=== PATIENT | male | born 1960 | race Two or more races ===

== ENCOUNTER → 2016-10-15 | Outpatient (CLI) | payer MEDICARE, OTHER ==
[2016-10-15 15:11] LABS: ADD UA MICROSCOPIC YES; APPEARANCE,URINE CLEAR (CLEAR); GLUCOSE, URINE (UA) NEGATIVE (NEGATIVE); KETONES,URINE TRACE mg/dL (NEGATIVE); LEUKOCYTE ESTERASE ,URINE TRACE (NEGATIVE); OCCULT BLOOD,URINE NEGATIVE (NEGATIVE); PROTEIN,URINE TRACE (NEGATIVE)
[2016-10-15 15:14] LABS: BASOPHILS % (AUTO) 0.3 % (0.0-2.0); HEMATOCRIT 46.6 % (41-53); HEMOGLOBIN 15.7 g/dL (13.5-17.5); LYMPHOCYTES # (AUTO) 1.5 K/uL (1.0-4.8); LYMPHOCYTES % (AUTO) 16.4 % (22.0-44.0); MEAN CORPUSCULAR HEMOGLOBIN 29.3 pg (26.0-34.0); MEAN CORPUSCULAR HGB CONC 33.8 G/dL (31.0-37.0); MEAN CORPUSCULAR VOLUME 87 fL (80-100); MONOCYTES # (AUTO) 0.7 K/uL (0.1-1.0); MONOCYTES % (AUTO) 7.9 % (2.0-9.0); NEUTROPHILS # (AUTO) 6.5 K/uL (1.8-7.7); NEUTROPHILS % (AUTO) 73.4 % (40.0-70.0); PLATELET COUNT (AUTO) 275 K/uL (150-450); RED BLOOD CELL COUNT(AUTO) 5.37 MIL/uL (4.50-5.90); RED CELL DISTRIBUTION WIDTH 14.2 % (11.5-14.5); WHITE BLOOD COUNT (AUTO) 8.9 K/uL (4.5-11.0)
[2016-10-15 15:18] LABS: ANION GAP 11 mmol/L (8-16); CARBON DIOXIDE 25 mmol/L (22-29); CHLORIDE 106 mmol/L (98-107); CREATININE 0.82 mg/dL (0.60-1.30); GLOMERULAR FILTR. RATE CALC > 60 mL/min (>60); POTASSIUM 4.1 mmol/L (3.5-5.1); SODIUM SERUM 142 mmol/L (136-145); UREA NITROGEN, BLOOD 16 mg/dL (7-18)
[2016-10-15 15:31] LABS: RBC,URINE 0-2 /HPF (0-2)
[2016-10-15 15:32] LABS: SQUAMOUS EPITHELIAL CELL,UR Rare /LPF (None Seen)
[2016-10-15 15:44] LABS: PROTHROMBIN TIME 10.3 SEC (9.4-11.6)
== END | disposition home or self-care (01) ==
LOC: MSR 13:25
DX: M20.41 Other hammer toe(s) (acquired), right foot (principal); R79.1 Abnormal coagulation profile
CPT/HCPCS: 82565; 84520; 93005

== ENCOUNTER 2016-11-02 05:43 | Day surgery (SDC) | payer MEDICARE, OTHER ==
[~2016-11-02] VITALS: Ht 165.1 cm; Wt 90.5 kg
[~2016-11-02 05:43] MED LIST: FERR-82 PO; VITAD1000 PO
[2016-11-02] MEDS ORDERED: FentaNYL CITRATE-PF 100 MCG/2 ML VIAL IVP ONE (05:44)
[2016-11-02] MEDS ORDERED: PROPOFOL 1% 20 ML VIAL IVP ONE (05:44)
[2016-11-02] MEDS ORDERED: MIDAZOLAM HCL 2 MG/2 ML VIAL IVP ONE (05:44)
[2016-11-02] MEDS ORDERED: RINGERS SOLUTION,LACTATED 1,000 ML IV ONE ×2 (05:52→06:00)
[2016-11-02] MEDS ORDERED: LIDOCAINE HCL/PF 2% 5 ML VIAL ONE (06:41)
[2016-11-02] MEDS ORDERED: BUPIVACAINE HCL/PF 0.5% 30 ML VIAL ONE (06:41)
[2016-11-02] MEDS ORDERED: FentaNYL CITRATE-PF 100 MCG/2 ML VIAL IVP PRN (08:00)
[2016-11-02] MEDS ORDERED: OXYGEN THERAPY IH SCH (08:00)
[2016-11-02] MEDS ORDERED: MEPERIDINE-PF 25 MG/ML SYRINGE IVP PRN (08:00)
[2016-11-02] MEDS ORDERED: HYDROmorphone 2 MG/ML SYRINGE IVP PRN (08:00)
[2016-11-02] MEDS ORDERED: POVIDONE-IODINE 30 GM OINTMENT TP ONE (08:06)
== END 2016-11-02 10:30 | disposition home or self-care (01) ==
LOC: SURGERY 05:43
DX: M20.41 Other hammer toe(s) (acquired), right foot (principal); L91.9 Hypertrophic disorder of the skin, unspecified; D64.9 Anemia, unspecified; E66.3 Overweight; Z98.890 Other specified postprocedural states; Z68.33 Body mass index [BMI] 33.0-33.9, adult
CPT/HCPCS: 28285; 73630; 88304; 88311; J2250; J2704; J3010; J3490 ×2; J7120